=== PATIENT | male | born 1940 | race Caucasian/White ===

== ENCOUNTER 2017-05-31 10:17 | Outpatient (CLI) | payer MEDICARE, OTHER ==
--- NOTE | 2017-05-31 13:07 | RAD ---
2 VIEWS CHEST: Date: 05/31/17 COMPARISON: 05/03/16. HISTORY: Dyspnea. FINDINGS: Two views of the chest show normal sized cardiomediastinal silhouette. Atherosclerotic calcifications are seen in the aorta. The pacemaker is unchanged in position. There is no evidence of consolidation , mass, or pleural effusion. IMPRESSION: No evidence of acute cardiopulmonary disease. POS: [facility]
== END 2017-05-31 10:18 | disposition home or self-care (01) ==
LOC: RAD 10:17
PROVIDERS: ATTEND Internal Medicine Critical Care Medicine
DX: R06.00 Dyspnea, unspecified (principal)
CPT/HCPCS: 71020

== ENCOUNTER 2017-11-10 13:42 | Outpatient (CLI) | payer MEDICARE ==
--- NOTE | 2017-11-10 15:20 | RAD ---
PA AND LATERAL CHEST RADIOGRAPH: Date: 11-10-17 History: Dyspnea. Comparison: 05-31-17 FINDINGS: Triple lead left subclavian cardiac pacemaking device remains in place and unchanged in condition. Ca rdiac silhouette and pulmonary vasculature are within normal limits. Lungs remain clear. There has be en no interval change when compared to the prior exam. IMPRESSION: No acute cardiopulmonary process. POS: [facility]
== END 2017-11-10 13:43 | disposition home or self-care (01) ==
LOC: RAD 13:42
PROVIDERS: ATTEND Internal Medicine Critical Care Medicine
DX: R06.00 Dyspnea, unspecified (principal)
CPT/HCPCS: 71046

== ENCOUNTER 2018-05-30 10:03 | Outpatient (CLI) | payer MEDICARE ==
--- NOTE | 2018-05-30 14:32 | RAD ---
FRONTAL AND LATERAL IMAGING OF CHEST: Date: 05/30/18 COMPARISON: 11/10/17. HISTORY: Shortness of breath. FINDINGS: Stable pulmonary hyperinflation and increased linear interstitial density. Three lead transvenous pac ing device inserted via left subclavian approach noted, stable. No pneumothorax or pleural fluid. No focal consolidation or alveolar edema. IMPRESSION: Stable 2 view examination of the chest as detailed above. POS: [facility]
== END 2018-05-30 10:04 | disposition home or self-care (01) ==
LOC: RAD 10:03
PROVIDERS: ATTEND Internal Medicine Critical Care Medicine
DX: R06.00 Dyspnea, unspecified (principal); R91.8 Other nonspecific abnormal finding of lung field; J98.4 Other disorders of lung; Z95.0 Presence of cardiac pacemaker
CPT/HCPCS: 71046

== ENCOUNTER 2021-02-14 12:24 | Outpatient (CLI) | payer MEDICARE ==
[2021-02-14 13:47] LABS: #Eosinphils 0.1 10x3/uL (0.0-0.5); #Monocytes 0.7 10x3/uL (0.0-1.1); #Neutrophils 4.6 10x3/uL (1.5-8.4); %Basophils 0.6 % (0.0-2.0); %Eosinophils 2.2 % (0.0-6.0); %Monocytes 10.5 % (0.0-10.0); %Neutrophils 71.9 % (40.0-75.0); Mean Corpuscular HGB CONC 30.8 g/dL (32.0-36.0); Mean Corpuscular Hemoglobin 29.6 pg (27.0-33.0); Mean Corpuscular Volume 96.1 fl (81.2-95.1); Mean Platelet Volume 8.7 fl (7.4-10.4); Platelet Count 188 10x3/uL (150-450); RBC Distribution Width 12.2 % (11.5-14.5); Red Blood Cell (RBC) Count 4.06 10x6/uL (4.32-5.72); White Blood Cell (WBC) Count 6.4 10x3/uL (3.5-10.5)
[2021-02-14 13:53] LABS: BUN (Urea Nitrogen) 18 mg/dL (8.4-25.7); Calc. Creatinine Clearance 0 mL/min (70-130); Calcium 9.6 mg/dL (7.8-10.44); Glucose 122 mg/dL (83-110)
[2021-02-14 13:54] LABS: INR-International Normal Ratio 2.5; PTT 36.1 sec (22.0-33.0); Prothrombin Time 26.6 sec (9.5-12.1)
[2021-02-14 14:01] LABS: Anion Gap 17 mmol/L (10-20); Carbon Dioxide 35 mmol/L (23-31); Chloride 93 mmol/L (98-107); Potassium 4.1 mmol/L (3.5-5.1); Sodium 141 mmol/L (136-145)
[2021-02-15 00:09] LABS: SARS-CoV-2 PCR by NAA Not Detected (NotDetected)
== END 2021-02-14 12:25 | disposition home or self-care (01) ==
LOC: LABBT 12:24
PROVIDERS: ATTEND Internal Medicine Cardiovascular Disease
DX: Z01.818 Encounter for other preprocedural examination (principal); I48.11 Longstanding persistent atrial fibrillation; Z20.822 Contact with and (suspected) exposure to COVID-19
CPT/HCPCS: 80048; 85025; 85610; 85730; 93005; U0003; U0005; 93010

== ENCOUNTER → 2021-02-17 | Day surgery (SDC) | payer MEDICARE ==
[2021-02-14 14:47] VITALS: BMI 29.8
[~2021-02-17] MED LIST: PHENYLEPHRINE-NS 100 MCG/ML 10 ML SYRINGE ONE; PROPOFOL 20 ML ONE; ePHEDrine Sulfate 50 MG/10 ML VIAL ONE
== END ==
LOC: CCL 10:32
PROVIDERS: ATTEND Internal Medicine Cardiovascular Disease
PROC: B24BZZ4 Ultrasonography of Heart with Aorta, Transesophageal (ICD-10-PCS; principal; 2021-02-17)
PROC: 5A2204Z Restoration of Cardiac Rhythm, Single (ICD-10-PCS; 2021-02-17)
DX: I48.0 Paroxysmal atrial fibrillation (principal); I08.1 Rheumatic disorders of both mitral and tricuspid valves; I70.0 Atherosclerosis of aorta; J44.9 Chronic obstructive pulmonary disease, unspecified; I48.92 Unspecified atrial flutter; I44.1 Atrioventricular block, second degree; I49.5 Sick sinus syndrome; E78.00 Pure hypercholesterolemia, unspecified; Z87.891 Personal history of nicotine dependence; Z79.01 Long term (current) use of anticoagulants; Z79.899 Other long term (current) drug therapy; Z95.0 Presence of cardiac pacemaker
CPT/HCPCS: 92960; 93005; 93010; 93312; J2704